=== PATIENT | female | born 2000 | race Two or more races ===

== ENCOUNTER 2022-01-19 05:24 | Outpatient (CLI) | payer OTHER ==
[~2022-01-19] VITALS: Ht 157.5 cm; Wt 115.8 kg
[2022-01-19 05:51] VITALS: BP 117/58
[2022-01-19] MEDS ORDERED: ACET500P3 PO (06:01)
[2022-01-19] MEDS ORDERED: HOME MED LIST COMPLETE! XX SCH (06:05)
[2022-01-19 07:20] VITALS: BP 131/68
== END 2022-01-19 07:35 | disposition home or self-care (01) ==
LOC: M LDO 05:24
PROVIDERS: ATTEND Obstetrics & Gynecology
DX: O26.893 Other specified pregnancy related conditions, third trimester (principal); R25.2 Cramp and spasm; R10.2 Pelvic and perineal pain; Z3A.29 29 weeks gestation of pregnancy
CPT/HCPCS: 59025; G0378; G0463

== ENCOUNTER → 2022-03-08 | Outpatient (REF) | payer OTHER ==
[~2022-03-08] MED LIST: ACET500P3 PO
== END ==
LOC: M SFHCWAGY 10:08
PROVIDERS: ATTEND Obstetrics & Gynecology
DX: O34.211 Maternal care for low transverse scar from previous cesarean delivery (principal)

== ENCOUNTER → 2022-03-23 | Outpatient (CLI) | payer OTHER | LOC: EDUNIT# 09:55 → M LABSMTC 10:14 | PROVIDERS: ATTEND Anesthesiology | DX: Z01.812 Encounter for preprocedural laboratory examination (principal); Z11.52 Encounter for screening for COVID-19 ==

== ENCOUNTER 2022-03-28 05:22 | Inpatient (IN) | payer OTHER ==
[~2022-03-28] VITALS: Ht 157.5 cm; Wt 119.3 kg
[2022-03-28] VITALS (8 sets, daily range): BP systolic 111–130; BP diastolic 57–80
[2022-03-28] MEDS ORDERED: HOME MED LIST COMPLETE! XX SCH (05:45)
[2022-03-28] MEDS ORDERED: BICITRA 30ML SOLN UDC PO ONE (05:50)
[2022-03-28] MEDS ORDERED: ceFAZolin SOD 2 GM in IV 1 EA IV ONE (05:50)
[2022-03-28] MEDS ORDERED: LACTATED RINGER'S 1000 ML IV ONE (05:50)
[2022-03-28] MEDS ORDERED: LR 1,000 ML IV SCH ×3 (05:50→11:45)
[2022-03-28] MEDS ORDERED: ceFAZolin SOD 1 GM in D5W MINI-BAG PLUS 50 ML IV ONE (05:50)
[2022-03-28 06:14] LABS: HEMATOCRIT 31.6 % (36.0-47.0); HEMOGLOBIN 9.7 g/dl (12.0-15.5); MEAN CORPUSCULAR HEMOGLOBIN 25.9 pg (27.0-33.0); MEAN CORPUSCULAR HGB CONC 30.7 g/dl (32.0-36.5); MEAN CORPUSCULAR VOLUME 84.5 fl (80.0-96.0); PLATELET COUNT, AUTOMATED 334 10^3/uL (150-450); RED BLOOD COUNT 3.74 10^6/uL (4.00-5.40); WHITE BLOOD COUNT 12.3 10^3/uL (4.0-10.0)
[2022-03-28] MEDS ORDERED: ALBU8.5H INH (07:11)
[2022-03-28] MEDS ORDERED: ACET-907 PO (07:12)
[2022-03-28] MEDS ORDERED: ONDANSETRON 4MG 2ML VIAL As Ordered ONE (07:14)
[2022-03-28] MEDS ORDERED: OXYTOCIN 30 UNITS IN 0.9% NaCl 500ML IV BAG (J2590) As Ordered ONE ×2 (07:14→09:31)
[2022-03-28] MEDS ORDERED: LEVO125C PO (07:14)
[2022-03-28] MEDS ORDERED: dexameTHASONE 4 MG/ML 1ML VIAL (J1100 PER 1MG) As Ordered ONE (07:14)
[2022-03-28] MEDS ORDERED: MORPHINE PRES-FREE INJ 10 MG/10 ML VIAL As Ordered ONE (07:14)
[2022-03-28] MEDS ORDERED: COLA100C5 PO ×2 (07:14→09:47)
[2022-03-28] MEDS ORDERED: TUMS750C5 PO (07:14)
[2022-03-28] MEDS ORDERED: PHENYLephrine 500MCG 5ML (100MCG/ML) SYRINGE As Ordered ONE (08:14)
[2022-03-28] MEDS ORDERED: ePHEDrine SULFATE 25 MG/5 ML(5MG/ML) SYRINGE As Ordered ONE (08:14)
[2022-03-28] MEDS ORDERED: KETOROLAC 60MG 2ML VIAL As Ordered ONE (08:36)
[2022-03-28] MEDS ORDERED: diphenhydrAMINE 50MG/ML VIAL As Ordered ONE (09:00)
[2022-03-28] MEDS ORDERED: OXYTOCIN DRIP 30 UNITS in IV 1 EA IV SCH (09:20)
[2022-03-28] MEDS ORDERED: SIMETHICONE 80MG CHEW TAB PO PRN (09:20)
[2022-03-28] MEDS ORDERED: MORPHINE 2 MG/ML 1ML VIAL IV PRN (09:20)
[2022-03-28] MEDS ORDERED: RHOGAM 300 MCG (1500 IU) INJ (J2790) IM SCH (09:20)
[2022-03-28] MEDS ORDERED: ONDANSETRON 4MG 2ML VIAL IV PRN ×2 (09:20→11:45)
[2022-03-28] MEDS ORDERED: ACETAMINOPHEN 500 MG TAB PO PRN (09:20)
[2022-03-28] MEDS ORDERED: NORCO, ANEXSIA 5/325MG TABLET (HYDROcodone/ACETAMINOPHEN) PO PRN (09:35)
[2022-03-28] MEDS ORDERED: HYDR-3715 PO (09:47)
[2022-03-28] MEDS ORDERED: IBUP80TA PO (09:47)
[2022-03-28] MEDS ORDERED: traMADol 50 MG TAB PO ONE (11:45)
[2022-03-28] MEDS ORDERED: MEPERIDINE INJ 25 MG/ML VIAL (J2175) IV PRN (11:45)
[2022-03-28] MEDS ORDERED: fentaNYL 100 MCG/2 ML INJECTION IV PRN (11:45)
[2022-03-28] MEDS ORDERED: KETOROLAC 30 MG/ML 1ML VIAL IV SCH (15:00)
[2022-03-28] MEDS: DOCUSATE SODIUM 100MG CAPSULE PO SCH (21:27)
[2022-03-28] MEDS: ENOXAPARIN 40MG/0.4ML SYRINGE (J1650 PER 10MG) SC SCH (21:29)
[2022-03-29] MEDS: KETOROLAC 30 MG/ML 1ML VIAL IV SCH ×2 (00:05→05:41)
[2022-03-29 02:00] VITALS: BP 114/56
[2022-03-29] MEDS: DOCUSATE SODIUM 100MG CAPSULE PO SCH ×2 (09:55→20:55)
[2022-03-29] MEDS: PRENATAL VITAMINS CHEWABLE TABLET PO SCH (09:55)
[2022-03-29] MEDS: ENOXAPARIN 40MG/0.4ML SYRINGE (J1650 PER 10MG) SC SCH ×2 (09:56→20:56)
[2022-03-29 10:00] VITALS: BP 120/67
[2022-03-29] MEDS: NORCO, ANEXSIA 5/325MG TABLET (HYDROcodone/ACETAMINOPHEN) PO PRN ×2 (13:14→20:55)
[2022-03-29] MEDS: IBUPROFEN 800 MG TAB PO SCH ×2 (13:15→20:54)
[2022-03-29 14:00] VITALS: BP 130/77
[2022-03-29 18:00] VITALS: BP 119/76
[2022-03-29 22:00] VITALS: BP 119/76
[2022-03-29] MEDS ORDERED: KETOROLAC 30 MG/ML 1ML VIAL IV SCH (23:30)
[2022-03-30 02:02] VITALS: BP 114/65
[2022-03-30 02:08] VITALS: BP 124/72
[2022-03-30 06:00] VITALS: BP 120/67
[2022-03-30] MEDS: IBUPROFEN 800 MG TAB PO SCH (06:45)
[2022-03-30 08:10] LABS: CREATININE FOR GFR 0.54 MG/DL (0.55-1.30); GLOMERULAR FILTRATION RATE > 60.0 (>60)
[2022-03-30] MEDS ORDERED: MEASLES,MUMPS,RUBELLA VACCINE INJ (MMR-II) (90707) SC.IMMUN ONE (09:00)
[2022-03-30] MEDS: DOCUSATE SODIUM 100MG CAPSULE PO SCH (09:06)
[2022-03-30] MEDS: ENOXAPARIN 40MG/0.4ML SYRINGE (J1650 PER 10MG) SC SCH (09:06)
[2022-03-30] MEDS: PRENATAL VITAMINS CHEWABLE TABLET PO SCH (09:06)
== END 2022-03-30 11:55 | disposition home or self-care (01) | DRG 773 ==
LOC: M LDI 05:22 → EDUNIT# 07:30 → M OBS 11:30
PROVIDERS: ADMIT Obstetrics & Gynecology; ATTEND Obstetrics & Gynecology
PROC: 10D00Z1 Extraction of Products of Conception, Low, Open Approach (ICD-10-PCS; principal; 2022-03-28 07:30)
DX: O34.211 Maternal care for low transverse scar from previous cesarean delivery (principal); Z3A.39 39 weeks gestation of pregnancy; O99.214 Obesity complicating childbirth; E66.9 Obesity, unspecified; Z37.0 Single live birth; Z88.5 Allergy status to narcotic agent; Z88.6 Allergy status to analgesic agent

== ENCOUNTER → 2022-12-14 | Outpatient (CLI) | payer OTHER ==
[~2022-12-14] MED LIST changes: +ACET-907 PO; +ALBU8.5H INH; +COLA100C5 PO; +HYDR-3715 PO; +IBUP80TA PO; +LEVO125C PO; +TUMS750C5 PO
[2022-12-14 10:31] LABS: BASO % 0.4 % (0.0-1.0); EOS # 0.6 10^3/uL (0.0-0.5); EOS % 7.3 % (0.0-3.0); HEMATOCRIT 37.7 % (36.0-47.0); HEMOGLOBIN 11.3 g/dl (12.0-15.5); LYMPH # 2.5 10^3/uL (1.5-5.0); LYMPH % 31.5 % (24.0-44.0); MEAN CORPUSCULAR HEMOGLOBIN 24.8 pg (27.0-33.0); MEAN CORPUSCULAR VOLUME 82.7 fl (80.0-96.0); MONO # 0.5 10^3/uL (0.0-0.8); MONO % 6.8 % (2.0-8.0); NEUTROPHILS # 4.2 10^3/uL (1.5-8.5); NEUTROPHILS % 53.9 % (36.0-66.0); PLATELET COUNT, AUTOMATED 425 10^3/uL (150-450); RED BLOOD COUNT 4.56 10^6/uL (4.00-5.40); WHITE BLOOD COUNT 7.8 10^3/uL (4.0-10.0)
[2022-12-14 11:03] LABS: HEMOGLOBIN A1c 5.3 % (4.0-6.0)
[2022-12-14 11:09] LABS: ALBUMIN 3.5 G/DL (3.2-5.2); ALKALINE PHOSPHATASE 121 U/L (46-116); ALT/SGPT 30 U/L (7.0-40); AST/SGOT 9 U/L (<34); BILIRUBIN,TOTAL 0.5 MG/DL (0.3-1.2); BLOOD UREA NITROGEN 11 MG/DL (9-23); CALCIUM LEVEL 9.1 MG/DL (8.5-10.1); CARBON DIOXIDE LEVEL 26 MMOL/L (20-31); CHLORIDE LEVEL 106 MMOL/L (98-107); CHOLESTEROL LEVEL 157 MG/DL (<200); CHOLESTEROL RISK RATIO 4.02 (<5); FREE T4 1.07 NG/DL (0.89-1.76); GLOMERULAR FILTRATION RATE > 60.0 (>60); GLUCOSE, FASTING 84 MG/DL (60-100); LDL CHOLESTEROL 95.6 MG/DL (<100); POTASSIUM SERUM 4.2 MMOL/L (3.5-5.1); SODIUM LEVEL 138 MMOL/L (136-145); THYROID STIMULATING HORMONE 12.991 uIU/ML (0.55-4.78); TOTAL PROTEIN 7.2 G/DL (5.7-8.2); TRIGLYCERIDES LEVEL 112 MG/DL (<150)
== END ==
LOC: M PLALAB 07:36
PROVIDERS: ATTEND Nurse Practitioner Adult Health
DX: E06.3 Autoimmune thyroiditis (principal); Z13.29 Encounter for screening for other suspected endocrine disorder; Z13.0 Encounter for screening for diseases of the blood and blood-forming organs and certain disorders involving the immune mechanism; Z13.220 Encounter for screening for lipoid disorders